=== PATIENT | male | born 1970 ===

== ENCOUNTER 2018-05-08 18:06 | Inpatient (IN) | payer MEDICAID, OTHER ==
[~2018-05-08] VITALS: Ht 182.9 cm; Wt 81.3 kg
[~2018-05-08 18:06] MED LIST: BACL-19 PO; BISA10SU2 PR; CEFT2PIG2 IV; CIPR100T3 PO; DOCU-131 PO; ERTA1VIA IV; FERR325T18 PO; FOLI-17 PO; FURO-92 PO; FURO80TA3 PO; GABA300C10 PO; HALO2ORA9 SL; LACT20SO13 PO; LORA-446 PO; MAGN580T4 PO; MIDO5TAB PO; Midodrine Hcl PO; ONDA4TAB10 PO; OXYC5TAB3 PO; PANT40TA3 PO; PROP10TA PO; RIFA550T4 PO; SPIR25TA PO; SPIR50TA PO; SPIR50TA4 PO; THIA100T10 PO; TRAZ-136 PO; ZIPR20VI IM; [UNRECOGNIZED DRUG - CODE] PO
[2018-05-08] MEDS ORDERED: MYCO200S PO ×2 (19:05)
[2018-05-08 19:50] LABS: ALANINE AMINOTRANSFERASE 21 U/L (12-78); ALBUMIN 2.5 g/dL (3.4-5.0); ANION GAP 11 mmol/L (5-15); CALCIUM 7.8 mg/dL (8.5-10.1); CHLORIDE 111 mmol/L (98-107); CREATININE 2.82 mg/dL (0.7-1.3)
[2018-05-08 19:54] LABS: ALKALINE PHOSPHATASE 84 U/L (45-117); BILIRUBIN,TOTAL 0.5 mg/dL (0.2-1.0); TOTAL PROTEIN 6.3 g/dL (6.4-8.2); TROPONIN I < 0.015 ng/mL (0.000-0.045)
[2018-05-08 20:31] LABS: MEAN CORPUSCULAR HEMOGLOBIN 32.2 pg (27.5-34.5); MEAN CORPUSCULAR VOLUME 94.8 fL (81-97); MEAN PLATELET VOLUME 8.2 fL (7.4-10.4); PLATELET COUNT 168 x10^3/uL (130-400); RED BLOOD COUNT 2.69 x10^6/uL (4.38-5.82); RED CELL DISTRIBUTION WIDTH 16.4 % (9.4-14.8)
[2018-05-08 21:01] LABS: MD YES
[2018-05-08 21:04] LABS: BAND#(MANUAL) 0.03 x10^3/uL; BANDS%(MANUAL) 1 % (0-7); BASOS#(MANUAL) 0.03 x10^3/uL (0-0.1); BASOS% (MANUAL) 1 % (0-1); EOS#(MANUAL) 0.06 x10^3/uL (0.0-0.4); EOS% (MANUAL) 2 % (1-7); LYMPH#(MANUAL) 0.06 x10^3/uL (1-3.4); LYMPHS% (MANUAL) 2 % (22-44); MONOS#(MANUAL) 0.11 x10^3/uL (0.3-2.7); MONOS% (MANUAL) 4 % (2-9); SEG#(MANUAL) 2.52 x10^3/uL (1.8-6.8); SEGS% (MANUAL) 90 % (42-75)
[2018-05-08 21:05] LABS: ANISOCYTOSIS 1+; HYPOCHROMIA 1+
[2018-05-08 21:06] LABS: POLYCHROMASIA 1+
[2018-05-08 21:08] LABS: <PLATELET ESTIMATE> ADEQUATE; <PLT MORPHOLOGY> NORMAL PLT MORPH; HYPERSEG PMNs 1+
[2018-05-08] MEDS ORDERED: SODIUM CHLORIDE 0.9% 1,000 ML IV ONE (21:40)
[2018-05-08] MEDS ORDERED: INSULIN REGULAR 100 UNITS/ML, 3ML VIAL IVPush ONE (22:00)
[2018-05-08] MEDS ORDERED: ALBUTEROL 0.5%, 20ML NPPB ONE (22:00)
[2018-05-08] MEDS ORDERED: SODIUM CHLORIDE 0.9% 1,000ML IVBOLUS ONE (22:00)
[2018-05-08] MEDS ORDERED: DEXTROSE 50%, 50ML SYRINGE IVPush ONE (22:00)
[2018-05-08 22:27] VITALS: BP 142/88
[2018-05-08 22:28] VITALS: BP 142/88
[2018-05-08] MEDS ORDERED: hydrALAzine 20 MG/ML, 1ML IVPush PRN (23:30)
[2018-05-08] MEDS ORDERED: POLYETHYLENE GLYCOL 17 GM PACKET PO PRN (23:30)
[2018-05-08] MEDS ORDERED: LABETALOL 5MG/ML, 20ML IVPush PRN (23:30)
[2018-05-08] MEDS ORDERED: GABAPENTIN 300 MG CAPSULE PO PRN (23:30)
[2018-05-08] MEDS ORDERED: BISACODYL 10 MG SUPP PR PRN (23:30)
[2018-05-08] MEDS ORDERED: SODIUM POLYSTYRENE SULFONATE ORAL SUSP PO ONE (23:30)
[2018-05-08] MEDS ORDERED: PROMETHAZINE 25 MG/ML, 1ML IM PRN (23:30)
[2018-05-08] MEDS: [UNRECOGNIZED DRUG - OTHER] MC SCH (23:45)
[2018-05-08] MEDS: SODIUM CHLORIDE 0.9% 1,000 ML IV SCH (23:57)
[2018-05-08] MEDS: HEPARIN 5,000 UNITS/ML, 1ML SQ SCH (23:57)
[2018-05-09 00:05] LABS: FREE T4 (FREE THYROXINE) 1.12 ng/dL (0.76-1.46); THYROID STIMULATING HORMONE 1.54 mIU/L (0.358-3.740)
[2018-05-09 00:14] LABS: HEMOGLOBIN A1C 5.5 % (4.2-6.3)
[2018-05-09] MEDS: ONDANSETRON 2MG/ML, 2ML IVPush PRN (00:32)
[2018-05-09 01:04] LABS: MICROSCOPIC AUTO
[2018-05-09 01:05] LABS: CULTURE INDICATED? NO
[2018-05-09 02:00] VITALS: BP 138/91
[2018-05-09 02:07] LABS: CHLORIDE,URINE RANDOM 51 mmol/L; POTASSIUM,URINE RANDOM 34 mmol/L; SODIUM,URINE RANDOM 58 mmol/L
[2018-05-09 06:03] LABS: MEAN CORPUSCULAR HEMOGLOBIN 31.8 pg (27.5-34.5); MEAN CORPUSCULAR HGB CONC 33.8 g/dL (33.2-36.2); MEAN PLATELET VOLUME 7.9 fL (7.4-10.4); PLATELET COUNT 156 x10^3/uL (130-400); RED BLOOD COUNT 2.51 x10^6/uL (4.38-5.82); RED CELL DISTRIBUTION WIDTH 16.3 % (9.4-14.8)
[2018-05-09 06:09] LABS: ALBUMIN 2.3 g/dL (3.4-5.0); ANION GAP 8 mmol/L (5-15); CALCIUM 7.7 mg/dL (8.5-10.1); CHLORIDE 113 mmol/L (98-107)
[2018-05-09 06:14] LABS: ALANINE AMINOTRANSFERASE 19 U/L (12-78); ALKALINE PHOSPHATASE 79 U/L (45-117); BILIRUBIN,TOTAL 0.5 mg/dL (0.2-1.0); CHOL/HDL RATIO 3.7; CHOLESTEROL, TOTAL 99 mg/dL (140-239); CREATININE 2.75 mg/dL (0.7-1.3); HDL CHOL % 27 % (26-37); HDL CHOLESTEROL (DIRECT) 27 mg/dL (40-60); LDL CHOLESTEROL,CALCULATED 44 mg/dL (54-169); LDL/HDL RATIO 1.6 (0.5-3.0); TOTAL PROTEIN 5.8 g/dL (6.4-8.2); TRIGLYCERIDES 139 mg/dL (50-200); VLDL CHOLESTEROL 28 mg/dL (0-25)
[2018-05-09 06:27] LABS: BASOPHILS # (AUTO) 0.01 x10^3/uL (0-0.1); BASOPHILS % (AUTO) 1 % (0-1); EOSINOPHILS # (AUTO) 0.02 x10^3/uL (0-0.4); EOSINOPHILS % (AUTO) 1 % (1-7); LYMPHOCYTES # (AUTO) 0.31 x10^3/uL (1-3.4); LYMPHOCYTES % (AUTO) 16 % (22-44); MD SCAN; MONOCYTES # (AUTO) 0.23 x10^3/uL (0.2-0.8); MONOCYTES % (AUTO) 12 % (2-9); NEUTROPHILS # (AUTO) 1.34 x10^3/uL (1.8-6.8); NEUTROPHILS % (AUTO) 70 % (42-75)
[2018-05-09 06:49] VITALS: BP 137/89
[2018-05-09] MEDS ORDERED: LORazepam 1MG TABLET PO ONE (07:00)
[2018-05-09] MEDS: [UNRECOGNIZED DRUG - OTHER] MC SCH (07:45)
[2018-05-09] MEDS: HEPARIN 5,000 UNITS/ML, 1ML SQ SCH ×2 (08:16→16:25)
[2018-05-09] MEDS: SODIUM CHLORIDE 0.9% 1,000 ML IV SCH ×2 (08:16→17:38)
[2018-05-09] MEDS ORDERED: MYCOPHENOLATE MOFETIL 200 MG/ML SUSP PO SCH ×2 (09:00→21:00)
[2018-05-09] MEDS ORDERED: TACR1CAP2 PO ×2 (11:45)
[2018-05-09] MEDS: TACROLIMUS 1 MG CAPSULE PO SCH ×2 (12:00→20:15)
[2018-05-09 12:25] VITALS: BP 120/79
[2018-05-09 18:26] VITALS: BP 138/85
[2018-05-10 00:36] VITALS: BP 109/72
[2018-05-10] MEDS: SODIUM CHLORIDE 0.9% 1,000 ML IV SCH ×3 (00:48→20:04)
[2018-05-10] MEDS: HEPARIN 5,000 UNITS/ML, 1ML SQ SCH ×3 (00:48→20:02)
[2018-05-10 04:51] LABS: MEAN CORPUSCULAR HEMOGLOBIN 32.2 pg (27.5-34.5); MEAN CORPUSCULAR HGB CONC 34.1 g/dL (33.2-36.2); MEAN CORPUSCULAR VOLUME 94.5 fL (81-97); MEAN PLATELET VOLUME 7.8 fL (7.4-10.4); PLATELET COUNT 125 x10^3/uL (130-400); RED BLOOD COUNT 2.31 x10^6/uL (4.38-5.82)
[2018-05-10 04:59] LABS: ANION GAP 6 mmol/L (5-15); CALCIUM 7.3 mg/dL (8.5-10.1); CHLORIDE 114 mmol/L (98-107); CREATININE 2.43 mg/dL (0.7-1.3)
[2018-05-10 05:15] LABS: BASOPHILS # (AUTO) 0.01 x10^3/uL (0-0.1); BASOPHILS % (AUTO) 1 % (0-1); EOSINOPHILS # (AUTO) 0.04 x10^3/uL (0-0.4); EOSINOPHILS % (AUTO) 3 % (1-7); LYMPHOCYTES % (AUTO) 25 % (22-44); MD SCAN; MONOCYTES # (AUTO) 0.22 x10^3/uL (0.2-0.8); MONOCYTES % (AUTO) 14 % (2-9); NEUTROPHILS # (AUTO) 0.92 x10^3/uL (1.8-6.8); NEUTROPHILS % (AUTO) 57 % (42-75)
[2018-05-10 06:43] VITALS: BP 131/86
[2018-05-10] MEDS: TACROLIMUS 1 MG CAPSULE PO SCH ×2 (08:00→20:02)
[2018-05-10 12:20] VITALS: BP 125/83
[2018-05-10] MEDS ORDERED: LIDOCAINE-MPF 1%, 5ML ONE (14:28)
[2018-05-10 19:39] VITALS: BP 125/80
[2018-05-10] MEDS: DOCUSATE 100 MG CAPSULE PO PRN (20:14)
[2018-05-11 02:50] VITALS: BP 121/77
[2018-05-11 05:55] LABS: MEAN CORPUSCULAR HEMOGLOBIN 32.2 pg (27.5-34.5); MEAN CORPUSCULAR HGB CONC 33.8 g/dL (33.2-36.2); MEAN CORPUSCULAR VOLUME 95.2 fL (81-97); MEAN PLATELET VOLUME 8.3 fL (7.4-10.4); PLATELET COUNT 146 x10^3/uL (130-400); RED BLOOD COUNT 2.41 x10^6/uL (4.38-5.82); RED CELL DISTRIBUTION WIDTH 15.6 % (9.4-14.8)
[2018-05-11 05:58] LABS: CHLORIDE 111 mmol/L (98-107)
[2018-05-11 06:04] LABS: ALANINE AMINOTRANSFERASE 12 U/L (12-78); ALBUMIN 1.9 g/dL (3.4-5.0); ALKALINE PHOSPHATASE 71 U/L (45-117); ANION GAP 7 mmol/L (5-15); BILIRUBIN,TOTAL 0.4 mg/dL (0.2-1.0); CALCIUM 7.5 mg/dL (8.5-10.1); CREATININE 2.49 mg/dL (0.7-1.3)
[2018-05-11 06:38] VITALS: BP 121/81
[2018-05-11 08:04] LABS: BASOPHILS # (AUTO) 0.02 x10^3/uL (0-0.1); BASOPHILS % (AUTO) 1 % (0-1); EOSINOPHILS # (AUTO) 0.05 x10^3/uL (0-0.4); EOSINOPHILS % (AUTO) 3 % (1-7); LYMPHOCYTES # (AUTO) 0.42 x10^3/uL (1-3.4); LYMPHOCYTES % (AUTO) 24 % (22-44); MD SCAN; MONOCYTES # (AUTO) 0.19 x10^3/uL (0.2-0.8); MONOCYTES % (AUTO) 11 % (2-9); NEUTROPHILS % (AUTO) 62 % (42-75)
[2018-05-11] MEDS: TACROLIMUS 1 MG CAPSULE PO SCH ×2 (09:00→20:26)
[2018-05-11] MEDS: HEPARIN 5,000 UNITS/ML, 1ML SQ SCH ×2 (09:24→20:25)
[2018-05-11] MEDS: IRON SUCROSE COMPLEX 100MG/5ML IV SCH (09:24)
[2018-05-11] MEDS: DOCUSATE 100 MG CAPSULE PO PRN (11:45)
[2018-05-11] MEDS: SODIUM CHLORIDE 0.9% 1,000 ML IV SCH ×2 (11:45→14:42)
[2018-05-11 12:23] VITALS: BP 126/88
[2018-05-11] MEDS: ALBUMIN HUMAN 25% 100 ML IV SCH ×2 (15:07→20:25)
[2018-05-11 15:18] LABS: CHLORIDE,URINE RANDOM 39 mmol/L; POTASSIUM,URINE RANDOM 21 mmol/L; SODIUM,URINE RANDOM 37 mmol/L
[2018-05-11 15:29] LABS: MICROSCOPIC NOT IND
[2018-05-11 15:48] LABS: OSMOLALITY,URINE 409 mOsm/kg (500-850)
[2018-05-11 18:50] VITALS: BP 138/87
[2018-05-12] VITALS (12 sets, daily range): BP systolic 129–168; BP diastolic 74–96
[2018-05-12] MEDS: ALBUMIN HUMAN 25% 100 ML IV SCH ×2 (01:54→08:29)
[2018-05-12] MEDS: SODIUM CHLORIDE 0.9% 1,000 ML IV SCH ×2 (02:00→23:40)
[2018-05-12 06:06] LABS: MEAN CORPUSCULAR HEMOGLOBIN 32.5 pg (27.5-34.5); MEAN CORPUSCULAR HGB CONC 34.2 g/dL (33.2-36.2); MEAN CORPUSCULAR VOLUME 95.1 fL (81-97); MEAN PLATELET VOLUME 7.6 fL (7.4-10.4); PLATELET COUNT 126 x10^3/uL (130-400); RED BLOOD COUNT 2.05 x10^6/uL (4.38-5.82); RED CELL DISTRIBUTION WIDTH 15.8 % (9.4-14.8)
[2018-05-12 06:16] LABS: CHLORIDE 115 mmol/L (98-107)
[2018-05-12 06:24] LABS: ALANINE AMINOTRANSFERASE 11 U/L (12-78); ALBUMIN 2.7 g/dL (3.4-5.0); ALKALINE PHOSPHATASE 67 U/L (45-117); ANION GAP 5 mmol/L (5-15); BILIRUBIN,TOTAL 0.5 mg/dL (0.2-1.0); CALCIUM 7.7 mg/dL (8.5-10.1); CREATINE KINASE, TOTAL 26 U/L (39-308); CREATININE 2.19 mg/dL (0.7-1.3); TOTAL PROTEIN 5.3 g/dL (6.4-8.2)
[2018-05-12 06:31] LABS: BASOPHILS # (AUTO) 0.01 x10^3/uL (0-0.1); BASOPHILS % (AUTO) 1 % (0-1); EOSINOPHILS # (AUTO) 0.04 x10^3/uL (0-0.4); EOSINOPHILS % (AUTO) 3 % (1-7); LYMPHOCYTES # (AUTO) 0.29 x10^3/uL (1-3.4); LYMPHOCYTES % (AUTO) 23 % (22-44); MD SCAN; MONOCYTES # (AUTO) 0.17 x10^3/uL (0.2-0.8); MONOCYTES % (AUTO) 13 % (2-9); NEUTROPHILS # (AUTO) 0.76 x10^3/uL (1.8-6.8); NEUTROPHILS % (AUTO) 60 % (42-75)
[2018-05-12] MEDS: HEPARIN 5,000 UNITS/ML, 1ML SQ SCH (08:15)
[2018-05-12] MEDS: IRON SUCROSE COMPLEX 100MG/5ML IV SCH (08:35)
[2018-05-12] MEDS: TACROLIMUS 1 MG CAPSULE PO SCH ×2 (08:35→20:19)
[2018-05-12] MEDS: TBO-FILGRASTIM 480 MCG/0.8 ML SQ SCH (12:04)
[2018-05-12] MEDS ORDERED: LIDOCAINE-MPF 1%, 5ML ONE (14:07)
[2018-05-13 02:55] VITALS: BP 129/80
[2018-05-13 05:26] LABS: MEAN CORPUSCULAR HGB CONC 34.4 g/dL (33.2-36.2); MEAN CORPUSCULAR VOLUME 93.2 fL (81-97); MEAN PLATELET VOLUME 7.9 fL (7.4-10.4); PLATELET COUNT 149 x10^3/uL (130-400); RED BLOOD COUNT 3.38 x10^6/uL (4.38-5.82); RED CELL DISTRIBUTION WIDTH 16.7 % (9.4-14.8)
[2018-05-13 05:30] LABS: CHLORIDE 113 mmol/L (98-107)
[2018-05-13 05:34] LABS: ALANINE AMINOTRANSFERASE 12 U/L (12-78); ALBUMIN 2.9 g/dL (3.4-5.0); ALKALINE PHOSPHATASE 56 U/L (45-117); ANION GAP 8 mmol/L (5-15); BILIRUBIN,TOTAL 1.2 mg/dL (0.2-1.0); CALCIUM 8.1 mg/dL (8.5-10.1); CREATININE 1.74 mg/dL (0.7-1.3); TOTAL PROTEIN 5.6 g/dL (6.4-8.2)
[2018-05-13 05:49] LABS: BASOPHILS # (AUTO) 0.03 x10^3/uL (0-0.1); BASOPHILS % (AUTO) 1 % (0-1); EOSINOPHILS # (AUTO) 0.06 x10^3/uL (0-0.4); EOSINOPHILS % (AUTO) 1 % (1-7); LYMPHOCYTES # (AUTO) 0.47 x10^3/uL (1-3.4); LYMPHOCYTES % (AUTO) 8 % (22-44); MD SCAN; MONOCYTES # (AUTO) 0.16 x10^3/uL (0.2-0.8); MONOCYTES % (AUTO) 3 % (2-9); NEUTROPHILS # (AUTO) 5.26 x10^3/uL (1.8-6.8); NEUTROPHILS % (AUTO) 88 % (42-75)
[2018-05-13] MEDS ORDERED: SODIUM PHOSPHATE 20 MMOL in SODIUM CHLORIDE 0.9% 500 ML IV ONE (06:30)
[2018-05-13] MEDS ORDERED: MAGNESIUM SULFATE PMX 2GM/50ML 50 ML IV ONE (06:30)
[2018-05-13 07:47] VITALS: BP 126/83
[2018-05-13] MEDS: TACROLIMUS 1 MG CAPSULE PO SCH ×2 (08:08→20:29)
[2018-05-13] MEDS: IRON SUCROSE COMPLEX 100MG/5ML IV SCH (08:08)
[2018-05-13] MEDS: TBO-FILGRASTIM 480 MCG/0.8 ML SQ SCH (08:08)
[2018-05-13 08:50] LABS: OCCULT BLOOD NEGATIVE (NEGATIVE)
[2018-05-13] MEDS: ONDANSETRON 2MG/ML, 2ML IVPush PRN (13:05)
[2018-05-13 13:38] VITALS: BP 129/79
[2018-05-13 18:21] VITALS: BP 126/88
[2018-05-13] MEDS: SODIUM CHLORIDE 0.9% 1,000 ML IV SCH (20:29)
[2018-05-13] MEDS: ONDANSETRON ODT 4 MG PO PRN (20:37)
[2018-05-14] MEDS: ONDANSETRON 2MG/ML, 2ML IVPush PRN (01:08)
[2018-05-14 01:17] VITALS: BP 128/86
[2018-05-14 05:40] LABS: MEAN CORPUSCULAR HEMOGLOBIN 32.1 pg (27.5-34.5); MEAN CORPUSCULAR HGB CONC 34.1 g/dL (33.2-36.2); MEAN CORPUSCULAR VOLUME 94.1 fL (81-97); PLATELET COUNT 142 x10^3/uL (130-400); RED BLOOD COUNT 3.36 x10^6/uL (4.38-5.82); RED CELL DISTRIBUTION WIDTH 17.1 % (9.4-14.8)
[2018-05-14 05:49] LABS: ALBUMIN 2.7 g/dL (3.4-5.0); ANION GAP 5 mmol/L (5-15); CALCIUM 7.8 mg/dL (8.5-10.1); CHLORIDE 112 mmol/L (98-107)
[2018-05-14 05:53] LABS: ALANINE AMINOTRANSFERASE 12 U/L (12-78); ALKALINE PHOSPHATASE 61 U/L (45-117); BILIRUBIN,TOTAL 1.2 mg/dL (0.2-1.0); CREATININE 2.15 mg/dL (0.7-1.3); TOTAL PROTEIN 5.5 g/dL (6.4-8.2)
[2018-05-14 05:59] LABS: MD YES
[2018-05-14 06:05] LABS: BAND#(MANUAL) 0.25 x10^3/uL; BANDS%(MANUAL) 4 % (0-7); EOS#(MANUAL) 0.06 x10^3/uL (0.0-0.4); EOS% (MANUAL) 1 % (1-7); LYMPHS% (MANUAL) 8 % (22-44); METAMYELOCYTES# (MANUAL) 0.06 x10^3/uL (0-0); METAMYELOCYTES% (MANUAL) 1 % (0-1); MONOS#(MANUAL) 0.44 x10^3/uL (0.3-2.7); MONOS% (MANUAL) 7 % (2-9); SEG#(MANUAL) 4.98 x10^3/uL (1.8-6.8); SEGS% (MANUAL) 79 % (42-75)
[2018-05-14 06:06] LABS: ANISOCYTOSIS 1+; POLYCHROMASIA 1+
[2018-05-14 06:07] LABS: <PLATELET ESTIMATE> ADEQUATE; <PLT MORPHOLOGY> NORMAL PLT MORPH
[2018-05-14 08:22] VITALS: BP 132/85
[2018-05-14] MEDS: IRON SUCROSE COMPLEX 100MG/5ML IV SCH (08:32)
[2018-05-14] MEDS: ONDANSETRON ODT 4 MG PO PRN (08:32)
[2018-05-14] MEDS: TACROLIMUS 1 MG CAPSULE PO SCH ×2 (08:33→21:42)
[2018-05-14] MEDS: FUROSEMIDE 40 MG TABLET PO SCH (10:37)
[2018-05-14] MEDS: PANTOPROZOLE 40MG TABLET PO SCH (10:37)
[2018-05-14] MEDS: SPIRONOLACTONE 50 MG TABLET PO SCH ×2 (10:38→21:42)
[2018-05-14 12:10] VITALS: BP 132/89
[2018-05-14 18:38] VITALS: BP 133/90
[2018-05-15 03:24] VITALS: BP 126/86
[2018-05-15] MEDS: PANTOPROZOLE 40MG TABLET PO SCH (05:19)
[2018-05-15 05:23] LABS: MEAN CORPUSCULAR HEMOGLOBIN 31.9 pg (27.5-34.5); MEAN CORPUSCULAR HGB CONC 33.7 g/dL (33.2-36.2); MEAN CORPUSCULAR VOLUME 94.7 fL (81-97); MEAN PLATELET VOLUME 8.2 fL (7.4-10.4); PLATELET COUNT 139 x10^3/uL (130-400); RED BLOOD COUNT 3.21 x10^6/uL (4.38-5.82); RED CELL DISTRIBUTION WIDTH 17.3 % (9.4-14.8)
[2018-05-15 05:26] LABS: CHLORIDE 110 mmol/L (98-107)
[2018-05-15 05:40] LABS: ALANINE AMINOTRANSFERASE 12 U/L (12-78); ALBUMIN 2.6 g/dL (3.4-5.0); ALKALINE PHOSPHATASE 71 U/L (45-117); ANION GAP 9 mmol/L (5-15); BILIRUBIN,TOTAL 0.9 mg/dL (0.2-1.0); TOTAL PROTEIN 5.5 g/dL (6.4-8.2)
[2018-05-15 05:42] LABS: BASOPHILS # (AUTO) 0.02 x10^3/uL (0-0.1); BASOPHILS % (AUTO) 0 % (0-1); EOSINOPHILS # (AUTO) 0.09 x10^3/uL (0-0.4); EOSINOPHILS % (AUTO) 2 % (1-7); LYMPHOCYTES # (AUTO) 0.54 x10^3/uL (1-3.4); LYMPHOCYTES % (AUTO) 11 % (22-44); MD SCAN; MONOCYTES # (AUTO) 0.51 x10^3/uL (0.2-0.8); MONOCYTES % (AUTO) 10 % (2-9); NEUTROPHILS # (AUTO) 3.88 x10^3/uL (1.8-6.8); NEUTROPHILS % (AUTO) 77 % (42-75)
[2018-05-15 06:51] VITALS: BP 126/85
[2018-05-15] MEDS: FUROSEMIDE 40 MG TABLET PO SCH (09:38)
[2018-05-15] MEDS: TACROLIMUS 1 MG CAPSULE PO SCH ×2 (09:39→22:19)
[2018-05-15] MEDS: SPIRONOLACTONE 50 MG TABLET PO SCH (09:39)
[2018-05-15 12:14] VITALS: BP 123/85
[2018-05-15] MEDS: SODIUM CHLORIDE 0.9% 1,000 ML IV SCH (12:46)
[2018-05-15 18:45] VITALS: BP 149/95
[2018-05-15] MEDS: ONDANSETRON 2MG/ML, 2ML IVPush PRN (22:18)
[2018-05-16] MEDS: SODIUM CHLORIDE 0.9% 1,000 ML IV SCH (02:07)
[2018-05-16 03:24] VITALS: BP 131/85
[2018-05-16 05:18] LABS: MEAN CORPUSCULAR HEMOGLOBIN 31.9 pg (27.5-34.5); MEAN CORPUSCULAR HGB CONC 33.9 g/dL (33.2-36.2); MEAN PLATELET VOLUME 8.4 fL (7.4-10.4); PLATELET COUNT 145 x10^3/uL (130-400); RED BLOOD COUNT 3.52 x10^6/uL (4.38-5.82); RED CELL DISTRIBUTION WIDTH 16.6 % (9.4-14.8)
[2018-05-16 05:25] LABS: ALBUMIN 3.1 g/dL (3.4-5.0); ANION GAP 8 mmol/L (5-15); CALCIUM 7.9 mg/dL (8.5-10.1); CHLORIDE 112 mmol/L (98-107)
[2018-05-16 05:29] LABS: ALANINE AMINOTRANSFERASE 15 U/L (12-78); ALKALINE PHOSPHATASE 74 U/L (45-117); BILIRUBIN,TOTAL 0.8 mg/dL (0.2-1.0); CREATININE 2.98 mg/dL (0.7-1.3); TOTAL PROTEIN 6.2 g/dL (6.4-8.2)
[2018-05-16] MEDS: PANTOPROZOLE 40MG TABLET PO SCH (05:43)
[2018-05-16 05:52] LABS: BASOPHILS # (AUTO) 0.02 x10^3/uL (0-0.1); BASOPHILS % (AUTO) 0 % (0-1); EOSINOPHILS # (AUTO) 0.08 x10^3/uL (0-0.4); EOSINOPHILS % (AUTO) 2 % (1-7); LYMPHOCYTES % (AUTO) 16 % (22-44); MD SCAN; MONOCYTES # (AUTO) 0.55 x10^3/uL (0.2-0.8); MONOCYTES % (AUTO) 15 % (2-9); NEUTROPHILS # (AUTO) 2.46 x10^3/uL (1.8-6.8); NEUTROPHILS % (AUTO) 66 % (42-75)
[2018-05-16 06:47] VITALS: BP 131/89
[2018-05-16 07:48] LABS: INTERNATIONAL NORMALIZED RATIO 1.01 (0.93-1.1); PROTHROMBIN TIME 10.7 Seconds (9.6-11.5)
[2018-05-16] MEDS: TACROLIMUS 1 MG CAPSULE PO SCH ×2 (09:42→21:58)
[2018-05-16 12:25] VITALS: BP 132/88
[2018-05-16 19:18] VITALS: BP 129/86
[2018-05-17 01:27] VITALS: BP 138/91
[2018-05-17] MEDS: PANTOPROZOLE 40MG TABLET PO SCH (05:34)
[2018-05-17 06:02] LABS: ALANINE AMINOTRANSFERASE 13 U/L (12-78); ALBUMIN 2.8 g/dL (3.4-5.0); ANION GAP 7 mmol/L (5-15); CALCIUM 7.9 mg/dL (8.5-10.1); CHLORIDE 115 mmol/L (98-107); CREATININE 3.03 mg/dL (0.7-1.3)
[2018-05-17 06:05] LABS: ALKALINE PHOSPHATASE 71 U/L (45-117); BILIRUBIN,TOTAL 0.7 mg/dL (0.2-1.0); TOTAL PROTEIN 5.5 g/dL (6.4-8.2)
[2018-05-17 06:13] LABS: MEAN CORPUSCULAR HEMOGLOBIN 32.4 pg (27.5-34.5); MEAN CORPUSCULAR HGB CONC 34.8 g/dL (33.2-36.2); MEAN PLATELET VOLUME 8.9 fL (7.4-10.4); PLATELET COUNT 111 x10^3/uL (130-400); RED BLOOD COUNT 3.17 x10^6/uL (4.38-5.82); RED CELL DISTRIBUTION WIDTH 15.7 % (9.4-14.8)
[2018-05-17 06:26] LABS: MD YES
[2018-05-17 06:35] LABS: <PLATELET ESTIMATE> ADEQUATE; <PLT MORPHOLOGY> NORMAL PLT MORPH; ANISOCYTOSIS 1+; BAND#(MANUAL) 0.07 x10^3/uL; BANDS%(MANUAL) 4 % (0-7); EOS#(MANUAL) 0.05 x10^3/uL (0.0-0.4); EOS% (MANUAL) 3 % (1-7); LYMPH#(MANUAL) 0.65 x10^3/uL (1-3.4); LYMPHS% (MANUAL) 36 % (22-44); MONOS% (MANUAL) 22 % (2-9); POLYCHROMASIA 1+; SEG#(MANUAL) 0.63 x10^3/uL (1.8-6.8); SEGS% (MANUAL) 35 % (42-75)
[2018-05-17 06:38] VITALS: BP 132/89
[2018-05-17] MEDS: TACROLIMUS 1 MG CAPSULE PO SCH ×2 (09:24→21:05)
[2018-05-17] MEDS ORDERED: TBO-FILGRASTIM 480 MCG/0.8 ML SQ ONE (09:30)
[2018-05-17 12:27] VITALS: BP 151/84
[2018-05-17 20:55] VITALS: BP 122/85
[2018-05-18 03:07] VITALS: BP 125/82
[2018-05-18] MEDS: PANTOPROZOLE 40MG TABLET PO SCH (05:05)
[2018-05-18 06:09] LABS: MEAN CORPUSCULAR HEMOGLOBIN 31.5 pg (27.5-34.5); MEAN CORPUSCULAR HGB CONC 33.9 g/dL (33.2-36.2); PLATELET COUNT 113 x10^3/uL (130-400); RED BLOOD COUNT 3.68 x10^6/uL (4.38-5.82); RED CELL DISTRIBUTION WIDTH 16.2 % (9.4-14.8)
[2018-05-18 06:16] LABS: ALBUMIN 3.1 g/dL (3.4-5.0); ANION GAP 11 mmol/L (5-15); CALCIUM 8.5 mg/dL (8.5-10.1); CHLORIDE 112 mmol/L (98-107)
[2018-05-18 06:21] LABS: ALANINE AMINOTRANSFERASE 14 U/L (12-78); ALKALINE PHOSPHATASE 90 U/L (45-117); BILIRUBIN,TOTAL 1.3 mg/dL (0.2-1.0); CREATININE 2.98 mg/dL (0.7-1.3); TOTAL PROTEIN 6.2 g/dL (6.4-8.2)
[2018-05-18 06:27] LABS: MD YES
[2018-05-18 06:29] LABS: BAND#(MANUAL) 0.66 x10^3/uL; BANDS%(MANUAL) 8 % (0-7); EOS#(MANUAL) 0.17 x10^3/uL (0.0-0.4); EOS% (MANUAL) 2 % (1-7); LYMPH#(MANUAL) 0.75 x10^3/uL (1-3.4); LYMPHS% (MANUAL) 9 % (22-44); MONOS#(MANUAL) 0.58 x10^3/uL (0.3-2.7); MONOS% (MANUAL) 7 % (2-9); SEG#(MANUAL) 6.14 x10^3/uL (1.8-6.8); SEGS% (MANUAL) 74 % (42-75)
[2018-05-18 06:30] LABS: <PLATELET ESTIMATE> ADEQUATE; ANISOCYTOSIS 1+; POLYCHROMASIA 1+
[2018-05-18] MEDS: ONDANSETRON 2MG/ML, 2ML IVPush PRN (06:30)
[2018-05-18 06:31] LABS: <PLT MORPHOLOGY> NORMAL PLT MORPH
[2018-05-18 06:52] VITALS: BP 110/77
[2018-05-18] MEDS: TACROLIMUS 1 MG CAPSULE PO SCH (08:21)
[2018-05-18 13:09] VITALS: BP 127/79
== END 2018-05-18 14:45 | disposition home or self-care (01) | DRG 432 ==
LOC: ED 21:15 → EDIP 21:40 → 4EST 22:34 → 4WST 05-16 11:40 → DCLOUNGE 05-18 14:36
PROVIDERS: ADMIT Internal Medicine; ATTEND Internal Medicine
PROC: 0W9G3ZZ Drainage of Peritoneal Cavity, Percutaneous Approach (ICD-10-PCS; 2018-05-10)
PROC: 0W9G3ZZ Drainage of Peritoneal Cavity, Percutaneous Approach (ICD-10-PCS; principal; 2018-05-12)
PROC: 30233N1 Transfusion of Nonautologous Red Blood Cells into Peripheral Vein, Percutaneous Approach (ICD-10-PCS; 2018-05-12)
DX: K70.40 Alcoholic hepatic failure without coma (principal); E43 Unspecified severe protein-calorie malnutrition; K76.7 Hepatorenal syndrome; D62 Acute posthemorrhagic anemia; E87.2 Acidosis; K76.6 Portal hypertension; N17.9 Acute kidney failure, unspecified; Z94.4 Liver transplant status; M48.56XA Collapsed vertebra, not elsewhere classified, lumbar region, initial encounter for fracture; G40.909 Epilepsy, unspecified, not intractable, without status epilepticus; D63.8 Anemia in other chronic diseases classified elsewhere; F10.20 Alcohol dependence, uncomplicated; D70.9 Neutropenia, unspecified; E83.42 Hypomagnesemia; E87.5 Hyperkalemia; I10 Essential (primary) hypertension; K70.31 Alcoholic cirrhosis of liver with ascites; Z79.899 Other long term (current) drug therapy; Z68.24 Body mass index [BMI] 24.0-24.9, adult; Z90.49 Acquired absence of other specified parts of digestive tract; Z91.19 Patient's noncompliance with other medical treatment and regimen; Z87.19 Personal history of other diseases of the digestive system
CPT/HCPCS: 36415; 49083; 70450; 70551; 74176; 76705; 76770; 80048; 80053; 80061; 80197; 80307; 81001; 81003; 82042; 82140; 82150; 82272; 82306; 82330; 82436; 82550; 82570; 82607; 82728; 83036; 83540; 83550; 83615; 83690; 83735; 83880; 83935; 84100; 84133; 84156; 84157; 84300; 84439; 84443; 84466; 84484; 84550; 85014; 85018; 85025; 85610; 86850; 86900; 86923; 87070; 87205; 88112; 88305; 89051; 93005; 93306; 95819; 99285; G0378; J1644; J1756; J2405; J7507; P9047; Q0162; J1447; J3475; J7030; J7040; P9016

== ENCOUNTER 2018-05-24 12:32 | Inpatient (IN) | payer OTHER ==
[~2018-05-24] VITALS: Ht 182.9 cm; Wt 84.3 kg
[~2018-05-24 12:32] MED LIST changes: -MIDO5TAB PO; +MIDO5TAB9 PO; +MYCO200S PO; +TACR1CAP2 PO; -TRAZ-136 PO; +TRAZ50TA66 PO
[2018-05-24] MEDS ORDERED: ASPIRIN 325 MG TABLET PO ONE (12:45)
[2018-05-24] MEDS ORDERED: VERAPAMIL 2.5 MG/ML, 2ML ONE (12:55)
[2018-05-24] MEDS ORDERED: FENTANYL PF 100 MCG/2ML ONE (12:55)
[2018-05-24] MEDS ORDERED: MIDAZOLAM 1 MG/ML, 5ML ONE (12:55)
[2018-05-24] MEDS ORDERED: HEPARIN 1,000 UNITS/ML, 10ML ONE (12:56)
[2018-05-24] MEDS ORDERED: LIDOCAINE-MPF 1%, 5ML ONE (12:56)
[2018-05-24 13:01] LABS: MEAN CORPUSCULAR HEMOGLOBIN 30.6 pg (27.5-34.5); MEAN CORPUSCULAR HGB CONC 33.2 g/dL (33.2-36.2); MEAN PLATELET VOLUME 9.3 fL (7.4-10.4); PLATELET COUNT 126 x10^3/uL (130-400); RED CELL DISTRIBUTION WIDTH 14.7 % (9.4-14.8)
[2018-05-24] MEDS ORDERED: BIVALIRUDIN 250 MG ONE (13:06)
[2018-05-24 13:11] LABS: TROPONIN I < 0.015 ng/mL (0.000-0.045)
[2018-05-24 13:23] LABS: MD YES
[2018-05-24 13:27] LABS: BAND#(MANUAL) 0.08 x10^3/uL; BANDS%(MANUAL) 2 % (0-7); BASOS#(MANUAL) 0.04 x10^3/uL (0-0.1); BASOS% (MANUAL) 1 % (0-1); LYMPH#(MANUAL) 0.13 x10^3/uL (1-3.4); LYMPHS% (MANUAL) 3 % (22-44); MONOS#(MANUAL) 0.46 x10^3/uL (0.3-2.7); MONOS% (MANUAL) 11 % (2-9); SEG#(MANUAL) 3.49 x10^3/uL (1.8-6.8); SEGS% (MANUAL) 83 % (42-75)
[2018-05-24 13:29] LABS: HYPERSEG PMNs 1+; TOXIC GRAN 1+
[2018-05-24 13:30] LABS: ANISOCYTOSIS 1+; POLYCHROMASIA 1+
[2018-05-24 13:32] LABS: <PLATELET ESTIMATE> DECREASED; <PLT MORPHOLOGY> NORMAL PLT MORPH; OVALOCYTES 1+
[2018-05-24 13:44] VITALS: BP 95/61
[2018-05-24 13:55] LABS: INTERNATIONAL NORMALIZED RATIO 1.2 (0.93-1.1); PROTHROMBIN TIME 12.6 Seconds (9.6-11.5)
[2018-05-24] MEDS ORDERED: POLYETHYLENE GLYCOL 17 GM PACKET PO PRN (14:30)
[2018-05-24] MEDS ORDERED: LABETALOL 5MG/ML, 20ML IVPush PRN (14:30)
[2018-05-24] MEDS ORDERED: PROMETHAZINE 25 MG/ML, 1ML IM PRN (14:30)
[2018-05-24] MEDS ORDERED: hydrALAzine 20 MG/ML, 1ML IVPush PRN (14:30)
[2018-05-24] MEDS ORDERED: DOCUSATE 100 MG CAPSULE PO PRN (14:30)
[2018-05-24] MEDS ORDERED: GABAPENTIN 300 MG CAPSULE PO PRN (14:30)
[2018-05-24] MEDS ORDERED: OXYcodone IR 5MG TABLET PO PRN (14:30)
[2018-05-24] MEDS ORDERED: HEPARIN 5,000 UNITS/ML, 1ML SQ SCH (14:30)
[2018-05-24] MEDS ORDERED: ONDANSETRON 2MG/ML, 2ML IVPush PRN (14:30)
[2018-05-24] MEDS ORDERED: morphine SULFATE 10 MG/ML, 1ML IVPush PRN (14:30)
[2018-05-24] MEDS ORDERED: BISACODYL 10 MG SUPP PR PRN (14:30)
[2018-05-24] MEDS ORDERED: SODIUM CHLORIDE 0.9% 1,000 ML IV SCH (15:00)
[2018-05-24] MEDS: SODIUM CHLORIDE 0.9% 1,000 ML IV SCH ×2 (15:41→23:22)
[2018-05-24 15:42] LABS: FREE T4 (FREE THYROXINE) 1.34 ng/dL (0.76-1.46); THYROID STIMULATING HORMONE 0.881 mIU/L (0.358-3.740)
[2018-05-24 15:47] LABS: HEMOGLOBIN A1C 4.9 % (4.2-6.3)
[2018-05-24 19:36] LABS: TROPONIN I < 0.015 ng/mL (0.000-0.045)
[2018-05-24 20:00] VITALS: BP 113/86
[2018-05-24 20:45] VITALS: BP 100/64
[2018-05-24] MEDS ORDERED: ACETAMINOPHEN 325 MG TABLET ONE (20:49)
[2018-05-24] MEDS ORDERED: IBUPROFEN 600 MG TABLET ONE (20:52)
[2018-05-24] MEDS ORDERED: PIPERACILLIN/TAZO 2.25 GM in SODIUM CHLORIDE 0.9% 50 ML IV SCH (21:00)
[2018-05-24] MEDS ORDERED: LORazepam 2 MG/ML, 1ML IVPush ONE (21:00)
[2018-05-24] MEDS ORDERED: IBUPROFEN 200 MG TABLET PO PRN (21:00)
[2018-05-24 21:08] LABS: MEAN CORPUSCULAR HEMOGLOBIN 30.9 pg (27.5-34.5); MEAN CORPUSCULAR HGB CONC 33.5 g/dL (33.2-36.2); MEAN CORPUSCULAR VOLUME 92.4 fL (81-97); MEAN PLATELET VOLUME 9.5 fL (7.4-10.4); PLATELET COUNT 125 x10^3/uL (130-400); RED BLOOD COUNT 2.86 x10^6/uL (4.38-5.82); RED CELL DISTRIBUTION WIDTH 15.2 % (9.4-14.8)
[2018-05-24 21:18] LABS: MICROSCOPIC INDICATED
[2018-05-24 21:22] LABS: ALANINE AMINOTRANSFERASE 32 U/L (12-78); ALBUMIN 2.4 g/dL (3.4-5.0); ANION GAP 11 mmol/L (5-15); CALCIUM 7.5 mg/dL (8.5-10.1); CHLORIDE 109 mmol/L (98-107); CREATININE 3.92 mg/dL (0.7-1.3)
[2018-05-24 21:24] LABS: ALKALINE PHOSPHATASE 65 U/L (45-117); BILIRUBIN,TOTAL 0.8 mg/dL (0.2-1.0); TOTAL PROTEIN 5.8 g/dL (6.4-8.2)
[2018-05-24 21:26] LABS: MD YES
[2018-05-24 21:27] LABS: CULTURE INDICATED? YES
[2018-05-24 21:28] LABS: ANISOCYTOSIS 1+; EOS#(MANUAL) 0.04 x10^3/uL (0.0-0.4); EOS% (MANUAL) 1 % (1-7); LYMPH#(MANUAL) 0.16 x10^3/uL (1-3.4); LYMPHS% (MANUAL) 4 % (22-44); MONOS#(MANUAL) 0.08 x10^3/uL (0.3-2.7); MONOS% (MANUAL) 2 % (2-9); SEG#(MANUAL) 3.63 x10^3/uL (1.8-6.8); SEGS% (MANUAL) 93 % (42-75)
[2018-05-24 21:29] LABS: <PLATELET ESTIMATE> ADEQUATE; <PLT MORPHOLOGY> NORMAL PLT MORPH; OVALOCYTES 1+; POLYCHROMASIA 1+
[2018-05-24 21:38] VITALS: BP 103/72
[2018-05-24] MEDS: DOXYCYCLINE 100MG TABLET PO SCH (22:47)
[2018-05-24] MEDS: TACROLIMUS 1 MG CAPSULE PO SCH (22:47)
[2018-05-24] MEDS: DAPTOMYCIN 300 MG in SODIUM CHLORIDE 0.9% 100 ML IV SCH (22:47)
[2018-05-24 23:38] LABS: RAPID INFLUENZA A Negative (Negative); RAPID INFLUENZA B Negative (Negative)
[2018-05-24 23:47] VITALS: BP_SYST 88; BP_SYST 89; BP_DIAS 58; BP_DIAS 60
[2018-05-24] MEDS: PIPERACILLIN/TAZO/PMX 2.25GM 50 ML IVPB SCH (23:47)
[2018-05-25] MEDS ORDERED: SODIUM CHLORIDE 0.9% 500 ML IV ONE (00:30)
[2018-05-25 01:20] LABS: TROPONIN I 0.053 ng/mL (0.000-0.045)
[2018-05-25 02:10] VITALS: BP 89/61
[2018-05-25 05:38] LABS: MEAN CORPUSCULAR HEMOGLOBIN 30.7 pg (27.5-34.5); MEAN CORPUSCULAR HGB CONC 33.5 g/dL (33.2-36.2); MEAN CORPUSCULAR VOLUME 91.7 fL (81-97); MEAN PLATELET VOLUME 9.6 fL (7.4-10.4); PLATELET COUNT 114 x10^3/uL (130-400)
[2018-05-25] MEDS: PIPERACILLIN/TAZO/PMX 2.25GM 50 ML IVPB SCH ×4 (05:55→23:36)
[2018-05-25] MEDS: ASPIRIN 325 MG TABLET EC PO SCH (05:55)
[2018-05-25 05:56] VITALS: BP 91/61
[2018-05-25 05:56] LABS: CHLORIDE 109 mmol/L (98-107)
[2018-05-25 06:01] LABS: ALANINE AMINOTRANSFERASE 38 U/L (12-78); ALBUMIN 2.1 g/dL (3.4-5.0); ALKALINE PHOSPHATASE 112 U/L (45-117); ANION GAP 11 mmol/L (5-15); BILIRUBIN,TOTAL 1.8 mg/dL (0.2-1.0); CALCIUM 7.3 mg/dL (8.5-10.1); CHOL/HDL RATIO 5.5; CHOLESTEROL, TOTAL 66 mg/dL (140-239); CREATININE 3.83 mg/dL (0.7-1.3); HDL CHOL % 18 % (26-37); HDL CHOLESTEROL (DIRECT) 12 mg/dL (40-60); LDL CHOLESTEROL,CALCULATED 28 mg/dL (54-169); LDL/HDL RATIO 2.3 (0.5-3.0); TOTAL PROTEIN 5.3 g/dL (6.4-8.2); TRIGLYCERIDES 131 mg/dL (50-200); VLDL CHOLESTEROL 26 mg/dL (0-25)
[2018-05-25 06:02] LABS: BASOPHILS # (AUTO) 0.01 x10^3/uL (0-0.1); BASOPHILS % (AUTO) 0 % (0-1); EOSINOPHILS # (AUTO) 0.01 x10^3/uL (0-0.4); EOSINOPHILS % (AUTO) 0 % (1-7); LYMPHOCYTES % (AUTO) 5 % (22-44); MD SCAN; MONOCYTES # (AUTO) 0.03 x10^3/uL (0.2-0.8); MONOCYTES % (AUTO) 1 % (2-9); NEUTROPHILS # (AUTO) 3.89 x10^3/uL (1.8-6.8); NEUTROPHILS % (AUTO) 94 % (42-75)
[2018-05-25 08:15] VITALS: BP 100/69
[2018-05-25] MEDS: TACROLIMUS 1 MG CAPSULE PO SCH ×2 (09:01→21:26)
[2018-05-25] MEDS: HEPARIN 5,000 UNITS/ML, 1ML SQ SCH ×2 (09:02→17:04)
[2018-05-25] MEDS: DOXYCYCLINE 100MG TABLET PO SCH ×2 (09:02→21:27)
[2018-05-25] MEDS: SODIUM CHLORIDE 0.9% 1,000 ML IV SCH ×2 (09:17→22:24)
[2018-05-25] MEDS: ONDANSETRON ODT 4 MG PO PRN ×2 (11:46→15:52)
[2018-05-25] MEDS ORDERED: PNEUMOC 13-VALENT VACC, 0.5 ML IM-VACC ONE (12:00)
[2018-05-25 12:40] VITALS: BP 94/64
[2018-05-25] MEDS: ALBUMIN HUMAN 25% 100 ML IV SCH ×2 (15:47→22:20)
[2018-05-25 20:39] VITALS: BP 99/66
[2018-05-25] MEDS: DAPTOMYCIN 300 MG in SODIUM CHLORIDE 0.9% 100 ML IV SCH (21:27)
[2018-05-26] VITALS (8 sets, daily range): BP systolic 91–111; BP diastolic 57–75
[2018-05-26] MEDS: HEPARIN 5,000 UNITS/ML, 1ML SQ SCH ×2 (00:34→09:00)
[2018-05-26] MEDS: ALBUMIN HUMAN 25% 100 ML IV SCH ×4 (03:49→22:57)
[2018-05-26] MEDS: ASPIRIN 325 MG TABLET EC PO SCH (05:09)
[2018-05-26] MEDS: PIPERACILLIN/TAZO/PMX 2.25GM 50 ML IVPB SCH ×4 (05:09→23:50)
[2018-05-26 06:06] LABS: ANION GAP 12 mmol/L (5-15); CALCIUM 7.3 mg/dL (8.5-10.1); CHLORIDE 110 mmol/L (98-107)
[2018-05-26 06:11] LABS: CREATININE 3.65 mg/dL (0.7-1.3)
[2018-05-26 06:41] LABS: BASOPHILS # (AUTO) 0.01 x10^3/uL (0-0.1); BASOPHILS % (AUTO) 1 % (0-1); EOSINOPHILS # (AUTO) 0.02 x10^3/uL (0-0.4); EOSINOPHILS % (AUTO) 1 % (1-7); LYMPHOCYTES # (AUTO) 0.17 x10^3/uL (1-3.4); LYMPHOCYTES % (AUTO) 9 % (22-44); MD SCAN; MEAN CORPUSCULAR HEMOGLOBIN 31.1 pg (27.5-34.5); MEAN CORPUSCULAR VOLUME 91.4 fL (81-97); MEAN PLATELET VOLUME 9.7 fL (7.4-10.4); MONOCYTES # (AUTO) 0.15 x10^3/uL (0.2-0.8); MONOCYTES % (AUTO) 8 % (2-9); NEUTROPHILS # (AUTO) 1.61 x10^3/uL (1.8-6.8); NEUTROPHILS % (AUTO) 82 % (42-75); PLATELET COUNT 94 x10^3/uL (130-400); RED BLOOD COUNT 2.07 x10^6/uL (4.38-5.82); RED CELL DISTRIBUTION WIDTH 15.3 % (9.4-14.8)
[2018-05-26] MEDS: DOXYCYCLINE 100MG TABLET PO SCH ×2 (10:00→21:08)
[2018-05-26] MEDS: TACROLIMUS 1 MG CAPSULE PO SCH ×2 (10:00→21:08)
[2018-05-26] MEDS ORDERED: ARTIFICIAL TEARS 15 DROP/ML BOTTLE RIGHTEYE PRN (12:00)
[2018-05-26 15:31] LABS: MEAN CORPUSCULAR HEMOGLOBIN 29.5 pg (27.5-34.5); MEAN CORPUSCULAR VOLUME 89.6 fL (81-97); MEAN PLATELET VOLUME 9.5 fL (7.4-10.4); PLATELET COUNT 130 x10^3/uL (130-400); RED BLOOD COUNT 2.83 x10^6/uL (4.38-5.82); RED CELL DISTRIBUTION WIDTH 15.9 % (9.4-14.8)
[2018-05-26 16:01] LABS: MD YES
[2018-05-26 16:04] LABS: BAND#(MANUAL) 0.02 x10^3/uL; BANDS%(MANUAL) 1 % (0-7); LYMPH#(MANUAL) 0.12 x10^3/uL (1-3.4); LYMPHS% (MANUAL) 5 % (22-44); MONOS#(MANUAL) 0.02 x10^3/uL (0.3-2.7); MONOS% (MANUAL) 1 % (2-9); SEG#(MANUAL) 2.14 x10^3/uL (1.8-6.8); SEGS% (MANUAL) 93 % (42-75)
[2018-05-26 16:05] LABS: HYPERSEG PMNs 1+
[2018-05-26 16:06] LABS: <PLATELET ESTIMATE> ADEQUATE; <PLT MORPHOLOGY> NORMAL PLT MORPH; POLYCHROMASIA 1+
[2018-05-26 17:53] LABS: OCCULT BLOOD POSITIVE (NEGATIVE)
[2018-05-26] MEDS: DAPTOMYCIN 300 MG in SODIUM CHLORIDE 0.9% 100 ML IV SCH (21:08)
[2018-05-27] VITALS (8 sets, daily range): BP systolic 105–126; BP diastolic 71–90
[2018-05-27] MEDS ORDERED: MAGNESIUM SULFATE PMX 2GM/50ML 50 ML IV ONE
[2018-05-27] MEDS: METHOCARBAMOL 750 MG TABLET PO PRN ×3 (00:05→22:36)
[2018-05-27] MEDS: ALBUMIN HUMAN 25% 100 ML IV SCH ×3 (05:25→18:17)
[2018-05-27] MEDS: PIPERACILLIN/TAZO/PMX 2.25GM 50 ML IVPB SCH (05:29)
[2018-05-27 06:46] LABS: ALANINE AMINOTRANSFERASE 16 U/L (12-78); ALBUMIN 3.4 g/dL (3.4-5.0); ANION GAP 13 mmol/L (5-15); CALCIUM 7.8 mg/dL (8.5-10.1); CHLORIDE 109 mmol/L (98-107); CREATININE 3.64 mg/dL (0.7-1.3)
[2018-05-27 06:48] LABS: ALKALINE PHOSPHATASE 53 U/L (45-117); BILIRUBIN,TOTAL 0.8 mg/dL (0.2-1.0); TOTAL PROTEIN 5.8 g/dL (6.4-8.2)
[2018-05-27 07:02] LABS: MEAN CORPUSCULAR HEMOGLOBIN 30.3 pg (27.5-34.5); MEAN CORPUSCULAR HGB CONC 33.9 g/dL (33.2-36.2); MEAN CORPUSCULAR VOLUME 89.2 fL (81-97); MEAN PLATELET VOLUME 8.6 fL (7.4-10.4); PLATELET COUNT 122 x10^3/uL (130-400); RED BLOOD COUNT 2.42 x10^6/uL (4.38-5.82); RED CELL DISTRIBUTION WIDTH 15.6 % (9.4-14.8)
[2018-05-27 07:03] LABS: BASOPHILS # (AUTO) 0.01 x10^3/uL (0-0.1); BASOPHILS % (AUTO) 0 % (0-1); EOSINOPHILS # (AUTO) 0.03 x10^3/uL (0-0.4); EOSINOPHILS % (AUTO) 2 % (1-7); LYMPHOCYTES # (AUTO) 0.21 x10^3/uL (1-3.4); LYMPHOCYTES % (AUTO) 12 % (22-44); MD SCAN; MONOCYTES # (AUTO) 0.15 x10^3/uL (0.2-0.8); MONOCYTES % (AUTO) 8 % (2-9); NEUTROPHILS # (AUTO) 1.42 x10^3/uL (1.8-6.8); NEUTROPHILS % (AUTO) 78 % (42-75)
[2018-05-27] MEDS ORDERED: HOLD MEDICATION MC PRN (08:00)
[2018-05-27] MEDS: ASPIRIN 325 MG TABLET EC PO SCH (08:02)
[2018-05-27] MEDS: TACROLIMUS 1 MG CAPSULE PO SCH ×2 (08:16→21:53)
[2018-05-27] MEDS ORDERED: LORazepam 2 MG/ML, 1ML IVPush ONE (09:00)
[2018-05-27] MEDS ORDERED: CEFAZOLIN 2,000 MG in SODIUM CHLORIDE 0.9% 50 ML IV SCH (10:30)
[2018-05-27 11:44] LABS: INTERNATIONAL NORMALIZED RATIO 1.16 (0.93-1.1); PROTHROMBIN TIME 12.2 Seconds (9.6-11.5)
[2018-05-27] MEDS: DOXYCYCLINE 100MG TABLET PO SCH ×2 (12:14→21:53)
[2018-05-27 15:17] LABS: POTASSIUM,URINE RANDOM 15 mmol/L; SODIUM,URINE RANDOM 28 mmol/L
[2018-05-27 15:19] LABS: CHLORIDE,URINE RANDOM < 10 mmol/L
[2018-05-28] MEDS: CEFAZOLIN PMX 2GM/50ML 50 ML IVPB SCH ×3 (00:02→23:37)
[2018-05-28 00:41] VITALS: BP 114/81
[2018-05-28 06:50] VITALS: BP 110/73
[2018-05-28 06:59] LABS: MEAN CORPUSCULAR HEMOGLOBIN 30.3 pg (27.5-34.5); MEAN CORPUSCULAR HGB CONC 33.8 g/dL (33.2-36.2); MEAN CORPUSCULAR VOLUME 89.7 fL (81-97); MEAN PLATELET VOLUME 8.7 fL (7.4-10.4); PLATELET COUNT 174 x10^3/uL (130-400); RED BLOOD COUNT 3.14 x10^6/uL (4.38-5.82); RED CELL DISTRIBUTION WIDTH 15.1 % (9.4-14.8)
[2018-05-28 07:16] LABS: MD YES
[2018-05-28 07:19] LABS: EOS#(MANUAL) 0.11 x10^3/uL (0.0-0.4); EOS% (MANUAL) 5 % (1-7); LYMPH#(MANUAL) 0.32 x10^3/uL (1-3.4); LYMPHS% (MANUAL) 15 % (22-44); MONOS#(MANUAL) 0.11 x10^3/uL (0.3-2.7); MONOS% (MANUAL) 5 % (2-9)
[2018-05-28 07:22] LABS: BASOS#(MANUAL) 0.04 x10^3/uL (0-0.1); BASOS% (MANUAL) 2 % (0-1); SEG#(MANUAL) 1.53 x10^3/uL (1.8-6.8); SEGS% (MANUAL) 73 % (42-75)
[2018-05-28 07:24] LABS: POLYCHROMASIA 1+
[2018-05-28 07:26] LABS: <PLATELET ESTIMATE> ADEQUATE; <PLT MORPHOLOGY> NORMAL PLT MORPH
[2018-05-28] MEDS: DOXYCYCLINE 100MG TABLET PO SCH ×2 (08:48→20:52)
[2018-05-28] MEDS: METHOCARBAMOL 750 MG TABLET PO PRN (08:48)
[2018-05-28] MEDS: TACROLIMUS 1 MG CAPSULE PO SCH ×2 (08:51→20:56)
[2018-05-28 12:48] LABS: ALBUMIN 3.9 g/dL (3.4-5.0); ANION GAP 14 mmol/L (5-15); CALCIUM 8.9 mg/dL (8.5-10.1); CHLORIDE 107 mmol/L (98-107)
[2018-05-28 12:51] LABS: ALANINE AMINOTRANSFERASE 13 U/L (12-78); ALKALINE PHOSPHATASE 132 U/L (45-117); BILIRUBIN,TOTAL 0.9 mg/dL (0.2-1.0); CREATININE 3.81 mg/dL (0.7-1.3); TOTAL PROTEIN 7.2 g/dL (6.4-8.2)
[2018-05-28 12:54] VITALS: BP 151/90
[2018-05-28] MEDS ORDERED: LORazepam 2 MG/ML, 1ML ONE (13:13)
[2018-05-28] MEDS ORDERED: METOPROLOL 1 MG/ML, 5ML IVPush ONE (13:30)
[2018-05-28] MEDS ORDERED: LORazepam 2 MG/ML, 1ML IVPush ONE (13:30)
[2018-05-28 13:45] VITALS: BP 95/68
[2018-05-28] MEDS: METOPROLOL TARTRATE 25 MG TABLET PO SCH (20:52)
[2018-05-28 22:07] VITALS: BP 101/70
[2018-05-29 01:34] VITALS: BP 100/67
[2018-05-29] MEDS: METHOCARBAMOL 750 MG TABLET PO PRN (03:02)
[2018-05-29 05:45] VITALS: BP 100/66
[2018-05-29 05:50] LABS: ALBUMIN 2.9 g/dL (3.4-5.0); ANION GAP 14 mmol/L (5-15); CALCIUM 7.9 mg/dL (8.5-10.1); CHLORIDE 104 mmol/L (98-107)
[2018-05-29 05:53] LABS: ALKALINE PHOSPHATASE 109 U/L (45-117); BILIRUBIN,TOTAL 0.7 mg/dL (0.2-1.0); TOTAL PROTEIN 5.7 g/dL (6.4-8.2)
[2018-05-29 06:28] LABS: MEAN CORPUSCULAR HEMOGLOBIN 30.9 pg (27.5-34.5); MEAN CORPUSCULAR HGB CONC 33.9 g/dL (33.2-36.2); MEAN PLATELET VOLUME 8.9 fL (7.4-10.4); PLATELET COUNT 121 x10^3/uL (130-400); RED BLOOD COUNT 2.89 x10^6/uL (4.38-5.82); RED CELL DISTRIBUTION WIDTH 15.4 % (9.4-14.8)
[2018-05-29 06:46] LABS: ALANINE AMINOTRANSFERASE 7 U/L (12-78)
[2018-05-29 06:51] LABS: MD YES
[2018-05-29 06:57] LABS: BAND#(MANUAL) 0.28 x10^3/uL; BANDS%(MANUAL) 5 % (0-7); EOS#(MANUAL) 0.06 x10^3/uL (0.0-0.4); EOS% (MANUAL) 1 % (1-7); LYMPH#(MANUAL) 0.34 x10^3/uL (1-3.4); LYMPHS% (MANUAL) 6 % (22-44); MONOS#(MANUAL) 0.45 x10^3/uL (0.3-2.7); MONOS% (MANUAL) 8 % (2-9); SEG#(MANUAL) 4.48 x10^3/uL (1.8-6.8); SEGS% (MANUAL) 80 % (42-75)
[2018-05-29 06:58] LABS: <PLATELET ESTIMATE> DECREASED; <PLT MORPHOLOGY> NORMAL PLT MORPH; POLYCHROMASIA 1+
[2018-05-29 07:33] VITALS: BP 112/68
[2018-05-29] MEDS: TACROLIMUS 1 MG CAPSULE PO SCH ×2 (09:43→20:14)
[2018-05-29] MEDS: DOXYCYCLINE 100MG TABLET PO SCH ×2 (09:43→20:14)
[2018-05-29] MEDS: METOPROLOL TARTRATE 25 MG TABLET PO SCH ×2 (09:44→20:17)
[2018-05-29] MEDS: CEFAZOLIN PMX 2GM/50ML 50 ML IVPB SCH ×2 (12:32→23:42)
[2018-05-29] MEDS: SODIUM BICARB 8.4%,50ML SYR. 75 MEQ in SODIUM CHLORIDE 0.45% 1,000 ML IV SCH ×2 (12:55→23:40)
[2018-05-29 13:18] VITALS: BP 94/63
[2018-05-29 15:07] LABS: SODIUM,URINE RANDOM 22 mmol/L
[2018-05-29] MEDS: LORazepam 2 MG/ML, 1ML IVPush PRN (15:53)
[2018-05-29 16:23] LABS: OSMOLALITY,URINE 262 mOsm/kg (500-850)
[2018-05-29 18:51] VITALS: BP 109/74
[2018-05-30 01:32] VITALS: BP 106/71
[2018-05-30 05:05] LABS: ALBUMIN 2.7 g/dL (3.4-5.0); ANION GAP 13 mmol/L (5-15); CALCIUM 7.9 mg/dL (8.5-10.1); CHLORIDE 104 mmol/L (98-107)
[2018-05-30 05:08] LABS: ALKALINE PHOSPHATASE 81 U/L (45-117); BILIRUBIN,TOTAL 0.6 mg/dL (0.2-1.0); CREATININE 3.52 mg/dL (0.7-1.3); TOTAL PROTEIN 5.5 g/dL (6.4-8.2)
[2018-05-30 05:16] LABS: ALANINE AMINOTRANSFERASE < 6 U/L (12-78)
[2018-05-30 06:04] VITALS: BP 103/65
[2018-05-30] MEDS: METOPROLOL TARTRATE 25 MG TABLET PO SCH ×2 (06:05→18:31)
[2018-05-30 09:05] VITALS: BP 105/72
[2018-05-30] MEDS: LORazepam 2 MG/ML, 1ML IVPush PRN ×2 (09:06→21:06)
[2018-05-30] MEDS: TACROLIMUS 1 MG CAPSULE PO SCH ×2 (09:06→20:37)
[2018-05-30] MEDS: DOXYCYCLINE 100MG TABLET PO SCH ×2 (09:06→20:36)
[2018-05-30] MEDS: SODIUM BICARB 8.4%,50ML SYR. 75 MEQ in SODIUM CHLORIDE 0.45% 1,000 ML IV SCH ×3 (09:58→21:49)
[2018-05-30] MEDS: CEFAZOLIN PMX 2GM/50ML 50 ML IVPB SCH (12:06)
[2018-05-30 13:45] VITALS: BP 93/61
[2018-05-30 14:10] VITALS: BP 110/73
[2018-05-30] MEDS: METHOCARBAMOL 750 MG TABLET PO PRN (15:16)
[2018-05-30 19:15] VITALS: BP 131/88
[2018-05-31] MEDS: CEFAZOLIN PMX 2GM/50ML 50 ML IVPB SCH ×2 (00:04→12:16)
[2018-05-31 00:47] VITALS: BP 143/92
[2018-05-31 05:24] VITALS: BP 116/80
[2018-05-31] MEDS: METOPROLOL TARTRATE 25 MG TABLET PO SCH ×2 (05:25→17:52)
[2018-05-31 07:17] VITALS: BP 128/86
[2018-05-31 08:06] LABS: ANION GAP 13 mmol/L (5-15); CALCIUM 7.8 mg/dL (8.5-10.1); CHLORIDE 106 mmol/L (98-107); CREATININE 2.68 mg/dL (0.7-1.3)
[2018-05-31 08:16] LABS: BASOPHILS # (AUTO) 0.02 x10^3/uL (0-0.1); BASOPHILS % (AUTO) 1 % (0-1); EOSINOPHILS # (AUTO) 0.02 x10^3/uL (0-0.4); EOSINOPHILS % (AUTO) 1 % (1-7); LYMPHOCYTES # (AUTO) 0.29 x10^3/uL (1-3.4); LYMPHOCYTES % (AUTO) 13 % (22-44); MD SCAN; MEAN CORPUSCULAR HEMOGLOBIN 29.7 pg (27.5-34.5); MEAN CORPUSCULAR HGB CONC 33.4 g/dL (33.2-36.2); MEAN PLATELET VOLUME 8.7 fL (7.4-10.4); MONOCYTES # (AUTO) 0.14 x10^3/uL (0.2-0.8); MONOCYTES % (AUTO) 6 % (2-9); NEUTROPHILS # (AUTO) 1.81 x10^3/uL (1.8-6.8); NEUTROPHILS % (AUTO) 79 % (42-75); PLATELET COUNT 143 x10^3/uL (130-400); RED BLOOD COUNT 3.01 x10^6/uL (4.38-5.82); RED CELL DISTRIBUTION WIDTH 15.3 % (9.4-14.8)
[2018-05-31] MEDS ORDERED: MAGNESIUM SULF. PMX 20GM/500ML 500 ML IV PRN (08:30)
[2018-05-31] MEDS: DOXYCYCLINE 100MG TABLET PO SCH ×2 (08:56→21:55)
[2018-05-31] MEDS: TACROLIMUS 1 MG CAPSULE PO SCH ×2 (08:56→21:55)
[2018-05-31] MEDS: LORazepam 1MG TABLET PO SCH ×2 (08:56→21:55)
[2018-05-31] MEDS ORDERED: MAGNESIUM SULFATE PMX 2GM/50ML 50 ML IV ONE (09:00)
[2018-05-31] MEDS: SODIUM BICARB 8.4%,50ML SYR. 75 MEQ in SODIUM CHLORIDE 0.45% 1,000 ML IV SCH (09:51)
[2018-05-31] MEDS: LEVETIRACETAM 500 MG TABLET PO SCH ×2 (09:54→21:55)
[2018-05-31 13:45] VITALS: BP 93/61
[2018-05-31] MEDS ORDERED: FENTANYL PF 100 MCG/2ML ONE ×2 (15:24)
[2018-05-31] MEDS ORDERED: MIDAZOLAM 1 MG/ML, 5ML ONE ×2 (15:24)
[2018-05-31] MEDS ORDERED: FLUMAZENIL 0.1 MG/1 ML, 5ML ONE (15:25)
[2018-05-31] MEDS ORDERED: NALOXONE 1 MG/ML, 2ML ONE (15:25)
[2018-05-31] MEDS ORDERED: LIDOCAINE-MPF 1%, 5ML ONE ×2 (15:26)
[2018-05-31 17:54] VITALS: BP 123/77
[2018-05-31 19:38] VITALS: BP 127/86
[2018-06-01] MEDS: CEFAZOLIN PMX 2GM/50ML 50 ML IVPB SCH (00:27)
[2018-06-01] MEDS: SODIUM BICARB 8.4%,50ML SYR. 75 MEQ in SODIUM CHLORIDE 0.45% 1,000 ML IV SCH ×2 (02:19→13:49)
[2018-06-01 02:55] VITALS: BP 113/75
[2018-06-01 06:23] LABS: HCT (SEDRATE) 27.4 % (39.2-51.8)
[2018-06-01 06:24] LABS: MEAN CORPUSCULAR HEMOGLOBIN 30.3 pg (27.5-34.5); MEAN CORPUSCULAR HGB CONC 33.8 g/dL (33.2-36.2); MEAN CORPUSCULAR VOLUME 89.6 fL (81-97); MEAN PLATELET VOLUME 8.8 fL (7.4-10.4); PLATELET COUNT 144 x10^3/uL (130-400); RED BLOOD COUNT 3.06 x10^6/uL (4.38-5.82); RED CELL DISTRIBUTION WIDTH 15.4 % (9.4-14.8)
[2018-06-01 06:36] LABS: ALANINE AMINOTRANSFERASE 7 U/L (12-78); ALBUMIN 2.7 g/dL (3.4-5.0); ANION GAP 12 mmol/L (5-15); CALCIUM 8.1 mg/dL (8.5-10.1); CHLORIDE 108 mmol/L (98-107); CREATININE 2.46 mg/dL (0.7-1.3)
[2018-06-01 06:42] LABS: ALKALINE PHOSPHATASE 70 U/L (45-117); BILIRUBIN,TOTAL 0.4 mg/dL (0.2-1.0); TOTAL PROTEIN 5.7 g/dL (6.4-8.2)
[2018-06-01] MEDS: METOPROLOL TARTRATE 25 MG TABLET PO SCH (06:48)
[2018-06-01 07:16] VITALS: BP 129/84
[2018-06-01 08:08] LABS: BASOPHILS % (AUTO) 0 % (0-1); EOSINOPHILS # (AUTO) 0.03 x10^3/uL (0-0.4); EOSINOPHILS % (AUTO) 1 % (1-7); LYMPHOCYTES # (AUTO) 0.33 x10^3/uL (1-3.4); LYMPHOCYTES % (AUTO) 15 % (22-44); MD SCAN; MONOCYTES # (AUTO) 0.19 x10^3/uL (0.2-0.8); MONOCYTES % (AUTO) 8 % (2-9); NEUTROPHILS # (AUTO) 1.74 x10^3/uL (1.8-6.8); NEUTROPHILS % (AUTO) 76 % (42-75)
[2018-06-01] MEDS: DOXYCYCLINE 100MG TABLET PO SCH (08:59)
[2018-06-01] MEDS: LORazepam 1MG TABLET PO SCH (08:59)
[2018-06-01] MEDS: TACROLIMUS 1 MG CAPSULE PO SCH (08:59)
[2018-06-01] MEDS: LEVETIRACETAM 500 MG TABLET PO SCH (08:59)
[2018-06-01] MEDS ORDERED: DAPTOMYCIN 500 MG in SODIUM CHLORIDE 0.9% 100 ML IVPB SCH (11:00)
[2018-06-01] MEDS ORDERED: DAPT500V6 IV (12:48)
[2018-06-01] MEDS ORDERED: LEVE500T53 PO (12:48)
[2018-06-01] MEDS ORDERED: METO25TA35 PO (12:48)
[2018-06-01 13:05] VITALS: BP 128/90
== END 2018-06-01 16:35 | disposition home or self-care (01) | DRG 871 ==
LOC: ED 12:53 → CCU 12:54 → ED 12:56 → CCU 12:59 → ED 13:29 → 5SO 13:42 → 4EST 05-31 13:12 → DCLOUNGE 06-01 16:15
PROVIDERS: ADMIT Internal Medicine; ATTEND Internal Medicine
PROC: 4A023N7 Measurement of Cardiac Sampling and Pressure, Left Heart, Percutaneous Approach (ICD-10-PCS; principal; 2018-05-24)
PROC: B2111ZZ Fluoroscopy of Multiple Coronary Arteries using Low Osmolar Contrast (ICD-10-PCS; 2018-05-24)
PROC: B2151ZZ Fluoroscopy of Left Heart using Low Osmolar Contrast (ICD-10-PCS; 2018-05-24)
PROC: 30233N1 Transfusion of Nonautologous Red Blood Cells into Peripheral Vein, Percutaneous Approach (ICD-10-PCS; 2018-05-26)
PROC: 0JH63XZ Insertion of Tunneled Vascular Access Device into Chest Subcutaneous Tissue and Fascia, Percutaneous Approach (ICD-10-PCS; 2018-05-31)
PROC: 02HV33Z Insertion of Infusion Device into Superior Vena Cava, Percutaneous Approach (ICD-10-PCS; 2018-05-31)
PROC: B5181ZA Fluoroscopy of Superior Vena Cava using Low Osmolar Contrast, Guidance (ICD-10-PCS; 2018-05-31)
PROC: B548ZZA Ultrasonography of Superior Vena Cava, Guidance (ICD-10-PCS; 2018-05-31)
DX: A41.2 Sepsis due to unspecified staphylococcus (principal); I21.19 ST elevation (STEMI) myocardial infarction involving other coronary artery of inferior wall; K76.7 Hepatorenal syndrome; D61.818 Other pancytopenia; E87.1 Hypo-osmolality and hyponatremia; G40.89 Other seizures; I30.9 Acute pericarditis, unspecified; I47.1 Supraventricular tachycardia; J90 Pleural effusion, not elsewhere classified; J98.11 Atelectasis; K76.6 Portal hypertension; N17.9 Acute kidney failure, unspecified; N18.4 Chronic kidney disease, stage 4 (severe); Z94.4 Liver transplant status; K92.2 Gastrointestinal hemorrhage, unspecified; D68.9 Coagulation defect, unspecified; E83.42 Hypomagnesemia; G83.84 Todd's paralysis (postepileptic); I12.9 Hypertensive chronic kidney disease with stage 1 through stage 4 chronic kidney disease, or unspecified chronic kidney disease; I35.0 Nonrheumatic aortic (valve) stenosis; K70.31 Alcoholic cirrhosis of liver with ascites; Z87.891 Personal history of nicotine dependence; G83.24 Monoplegia of upper limb affecting left nondominant side; Z83.3 Family history of diabetes mellitus; Z82.49 Family history of ischemic heart disease and other diseases of the circulatory system; R91.8 Other nonspecific abnormal finding of lung field
CPT/HCPCS: 36415; 36558; 70450; 70551; 71045; 71250; 76705; 76770; 76937; 77001; 80047; 80048; 80053; 80061; 80197; 81001; 82272; 82330; 82436; 82550; 82570; 82728; 83036; 83540; 83550; 83605; 83690; 83735; 83880; 83930; 83935; 84100; 84133; 84300; 84439; 84443; 84466; 84484; 85025; 85610; 85651; 85730; 86140; 86850; 86900; 86923; 87040; 87077; 87086; 87147; 87186; 87400; 90656; 93005; 93306; 93458; 93880; 95816; 95819; 99156; 99157; 99285; C1769; C1894; G0378; J0583; J0690; J0878; J1644; J2250; J2405; J2543; J3010; J7507; P9047; Q0162; C1750; C1887; G0009; J2060; J2270; J2310; J3475; J7030; P9016; Q9967

== ENCOUNTER → 2018-06-30 | Outpatient (CLI) | payer OTHER ==
[~2018-06-30] MED LIST changes: +DAPT500V6 IV; +LEVE500T53 PO; +METO25TA35 PO; +TACR1CAP4 PO
== END | disposition home or self-care (01) ==
LOC: CFH 15:20
PROVIDERS: ATTEND Internal Medicine Infectious Disease
DX: I82.621 Acute embolism and thrombosis of deep veins of right upper extremity (principal)

== ENCOUNTER 2018-07-02 10:30 | Emergency (ER) | payer OTHER ==
[~2018-07-02] VITALS: Ht 182.9 cm; Wt 72.8 kg
[~2018-07-02 10:30] MED LIST changes: -PROP10TA PO; +PROP10TA16 PO; -TACR1CAP4 PO
--- NOTE | 2018-07-02 10:57 | NUR ---
ER PRISCILA, MELYSSA AT BEDSIDE. ASSESSMENT, POC DISCUSSED. ORDERS REC'D
[2018-07-02] MEDS ORDERED: TACR1CAP4 PO ×2 (11:09)
[2018-07-02] MEDS ORDERED: DIAZEPAM 5 MG TABLET ONE (12:09)
[2018-07-02] MEDS ORDERED: LEVETIRACETAM 500 MG TABLET ONE ×2 (12:09→12:14)
--- NOTE | 2018-07-02 12:18 | NUR ---
DISCUSSED KEPPRA DOSE WITH DR. JEAN BAPTISTE. PT STATED TO THIS RN THAT HE TOOK 500MG OF KEPPRA THIS MORNING BUT THAT HE HAD NOT BEEN TAKING HIS KEPPRA PRIOR TO THIS MORNING. PT STATES THAT HE DIDN'T THINK HE WAS HAVING SEIZURES SO HE DID FEEL HE NEEDED TO TAKE THE KEPPRA. BASED ON THIS NEW INFORMATION DR. JEAN BAPTISTE INCREASED THE DOSE TO 1000MG TO BE GIVEN NOW.
[2018-07-02 12:20] VITALS: BP 130/82
[2018-07-02] MEDS ORDERED: LEVETIRACETAM 500 MG TABLET PO ONE ×2 (12:30→13:00)
[2018-07-02] MEDS ORDERED: DIAZEPAM 5 MG TABLET PO ONE (13:00)
== END 2018-07-02 13:38 | disposition home or self-care (01) ==
LOC: ED 13:20
DX: M62.81 Muscle weakness (generalized) (principal); I10 Essential (primary) hypertension; Z87.09 Personal history of other diseases of the respiratory system; Z87.19 Personal history of other diseases of the digestive system
CPT/HCPCS: 99284

== ENCOUNTER 2018-07-10 17:14 | Emergency (ER) | payer OTHER ==
[~2018-07-10] VITALS: Ht 182.9 cm; Wt 75.0 kg
[~2018-07-10 17:14] MED LIST changes: +TACR1CAP4 PO
--- NOTE | 2018-07-10 17:40 | NUR ---
JEAN-PIERRE FROM [facility]. REPORT RECEIVED FROM EMS. PT C/O INTERMITTENT LEFT ARM NUMBNESS/PAIN AND MUSCLE SPASMS SINCE 04/2018. PT HAS ONGOING LEFT ARM HAND WEAKNESS SINCE THAT TIME. NO INCREASE TODAY. EMS CALLED THIS PM PT HAD SEVERE LEFT ARM SPASM WITH LEFT ARM PAIN AND NUMBNESS AND DIFFICULTY SPEAKING ONSET TODAY 13:15. PER PT SYMPTOMS RESOLVED WITHIN 10 MIN. PT INIATIALLY EVALUATED AT [facility]; THEN TRANSFFERED TO THIS FACILITY. HEAD CT COMPLETED AT [facility]. PT IS A&OX4, FACE SYMMETRICAL. PT HAS MILD LEFT ARM AND LEFT HAND WEAKNESS THAT PT STATES HAS BEEN HIS BASELINE SINCE 04/2018. PT DENIES ANY NEW WEAKNESS/DEFICITS. PT DENIES ANY PAIN, DENIES ANY NUMBNESS AT THIS TIME. NO DRIFT NOTED. BILATERAL LE STRENGTH 4/5. PT STATES SYMPTOMS TODAY ARE SIMILAR TO OTHER EPISODES OF LEFT ARM/HAND HAND/NUMBNESS/SPASMS WITH ALTERED MENTAL STATUS AND DIFFICULTY SPEAKING THAT HE HAS HAD SEVERAL TIMES SINCE 04/2018. PT STATES HE HAS HAD AN EXTENSIVE WORKUP AT THIS HOSPITAL FOR THESE SYMPTOMS. EKG TAKEN ON ARRIVAL BY THIS RN, REVIEWED BY ACOSTA KLINE. ALL MONITORS IN PLACE. CALL LIGHT IN REACH. WARM BLANKET PROVIDED. AWAITING MD LOJA AND DISPO.
--- NOTE | 2018-07-10 17:54 | NUR ---
PT SYMPTOMS AND TIME OF ONSET DISCUSSED WITH EDMD BETTS. HEAD CT RESULTS TAKEN TODAY AT [facility] REVIEWED WITH ED. AWAITING FURTHER ORDERS AT THIS TIME.
--- NOTE | 2018-07-10 18:03 | NUR ---
ACOSTA BETTS AT BEDSIDE TO EVALUATE PT.
[2018-07-10] MEDS ORDERED: LEVE500T53 PO (18:11)
[2018-07-10] MEDS ORDERED: ANTIBIOTIC (18:12)
[2018-07-10] MEDS ORDERED: ERTA1VIA IV (18:16)
--- NOTE | 2018-07-10 18:23 | NUR ---
PT STATES HE TAKES IV INVANZ QPM "AROUND 6" THROUGH PERCUTANEOUS EXTERNAL CENTRAL PORT PRESENT TO RIGHT CHEST. ACOSTA BETTS NOTIFIED. MD TIMMONS'Erika RN USE OF PT'S PORT FOR INFUSION.
[2018-07-10] MEDS ORDERED: ERTAPENEM 1 GM in SODIUM CHLORIDE 0.9% 50 ML IV ONE (18:30)
--- NOTE | 2018-07-10 18:57 | NUR ---
THIS RN SPOKE WITH [employer] MECHANIC MD CHE FOR [facility] INFECTIOUS DISEASE. RN CONFIRMED WITH PT REQUIRES INVANZ 1GM QPM FOR MSSA INFECTION. INVANZ INFUSION INITIATED THROUGH RIGHT CHEST PORT. PORT FLUSHES EASILY AND HAS BLOOD RETURN. DRESSING CDI. PT AWAITING MRI AND ADMIT AT THIS TIME.
--- NOTE | 2018-07-10 19:00 | NUR ---
PT RESTING IN GURNEY. PT AOX4. RESPS EVEN AND UNLABORED. AWAITING MRI.
--- NOTE | 2018-07-10 19:07 | NUR ---
PT PASSED RN SWALLOW EVAL. PT GIVEN MEAL TRAY WITH MD TIMMONS. PT TOLERATING REGULAR DIET TRAY WITH NO S/SX ASPIRATION.
--- NOTE | 2018-07-10 19:15 | NUR ---
MRI FORM COPMLETED.
--- NOTE | 2018-07-10 19:20 | NUR ---
PT TO MRI
[2018-07-10] MEDS ORDERED: GADOBUTROL 7.5 MMOL/7.5 ML PFS ONE (19:37)
--- NOTE | 2018-07-10 19:45 | NUR ---
LUNCH RN: Pt back to room from imaging, IV ABX complete. Pt disconnected from monitoring to walk to bathroom. Pt ambulated with steady gait, no assistance required.
[2018-07-10 20:39] VITALS: BP 144/92
--- NOTE | 2018-07-10 20:40 | NUR ---
PT RESTING IN RNORTH BERGEN. PT AOX4. RESPS EVEN AND UNLABORED. PT DENIES ANY NEEDS AND CONCERNS AT THIS TIME. AWATING DC.
--- NOTE | 2018-07-10 21:13 | NUR ---
PT GIVEN DC INSTRUCTIONS WITH NEURO FOLLOW UP RECOMMENDATIONS. RESULTS OF MRI DISCUSSED WITH PT BY ACOSTA BETTS. PT'S SISTER CALLED, PT'S SISTER CALLED REQUESTING UPDATE AND POC. THIS RN OBTAINED PERMISSION FROM PT TO SHARE INFORMATION WITH HIS SISTER. SISTER CALLED BACK AND EDUCATED REGARDING RESULTS AND POC. PT A&OX4, RESPS EVEN AND UNLABORED. PT DENIES PAIN. PICC KEPT IN PLACE (FOR RETIREMENT IV ABX) AT TIME OF DC. PT AMBULATORY WITH STEADY GAIT. PT AMBULATED TO DC DESK INDEPENDENTLY WITHOUT DIFFICULTY. PT'S FAMILY TO DRIVE HIM HOME. ALL QUESTIONS ANSWERED, NADN AT DC.
== END 2018-07-10 21:14 | disposition home or self-care (01) ==
LOC: ED 17:46
DX: R56.9 Unspecified convulsions (principal); I10 Essential (primary) hypertension; Z87.891 Personal history of nicotine dependence; N28.9 Disorder of kidney and ureter, unspecified
CPT/HCPCS: 70553; 93005; 96365; 99284; A9585; J1335

== ENCOUNTER → 2018-07-23 | Day surgery (SDC) | payer OTHER ==
[~2018-07-23] MED LIST changes: +ANTIBIOTIC; +LIDOCAINE-MPF 1%, 5ML ONE
== END | disposition home or self-care (01) ==
LOC: RAD 11:30
PROVIDERS: ATTEND Internal Medicine Infectious Disease
DX: Z45.2 Encounter for adjustment and management of vascular access device (principal); I33.0 Acute and subacute infective endocarditis; A41.01 Sepsis due to Methicillin susceptible Staphylococcus aureus; Z79.2 Long term (current) use of antibiotics
CPT/HCPCS: 36589; 77001